=== PATIENT | female | born 1995 | race Caucasian/White ===

== ENCOUNTER → 2019-04-30 | Outpatient (CLI) | payer BC | END | disposition home or self-care (01) | LOC: LABWHC1 13:30 | PROVIDERS: ATTEND Obstetrics & Gynecology | DX: Z34.81 Encounter for supervision of other normal pregnancy, first trimester (principal) | CPT/HCPCS: 36415; 84702 ==

== ENCOUNTER 2020-05-30 06:00 | Inpatient (IN) | payer BC ==
[2020-05-30] MEDS ORDERED: LIDOCAINE 0.5% (PF) 5 MG/ML (50 ML SDV) SQ PRN (06:54)
[2020-05-30] MEDS ORDERED: TERBUTALINE 1 MG/ML VIAL SQ PRN (06:54)
[2020-05-30] MEDS ORDERED: CARBOPROST TROMETHAMINE 250 MCG/ML 1 ML AMP IM PRN (06:54)
[2020-05-30] MEDS ORDERED: OXYTOCIN 10 UNIT/ML 1 ML VIAL IM PRN (06:54)
[2020-05-30] MEDS ORDERED: METHYLERGONOVINE 0.2 MG/ML 1 ML AMP IM PRN (06:54)
[2020-05-30] MEDS ORDERED: LACTATED RINGERS 1,000 ML IV SCH (07:00)
[2020-05-30] MEDS ORDERED: OXYTOCIN 30 UNITS/500 ML NS 30 UNIT in SALINE 1 500ML.BAG IV SCH (07:00)
[2020-05-30] MEDS ORDERED: PENICILLIN G POTASSIUM 5,000,000 UNIT in DEXTROSE 5% IN WATER 100 ML IVPB STA ×2 (07:02)
[2020-05-30 07:47] LABS: Basophils % (A) 0 %; Eosinophils # (A) 0.1 k/uL (0-0.7); Eosinophils % (A) 1 %; HCT 37.9 % (34.0-46.0); HGB 12.6 gm/dL (11.4-16.0); Lymphocytes # (A) 1.4 k/uL (1.0-4.8); Lymphocytes % (A) 12 %; MCHC 33.3 g/dL (31.0-37.0); MCV 87.1 fL (80.0-100.0); Mean Platelet Volume 7.7; Monocytes # (A) 0.5 k/uL (0-1.0); Monocytes % (A) 4 %; Neutrophils # (A) 9.7 k/uL (1.3-7.7); Neutrophils % (A) 82 %; Platelet Count 217 k/uL (150-450); RBC 4.35 m/uL (3.80-5.40); RDW 14.1 % (11.5-15.5); WBC 11.8 k/uL (3.8-10.6)
[2020-05-30] MEDS ORDERED: BUTORPHANOL 1 MG/ML 1 ML VIAL IV PRN (09:01)
--- NOTE | 2020-05-30 09:06 | P.HPOB ---
History of Present Illness H&P Date: 05/30/20 Chief Complaint: 39+ weeks, elective induction The patient is a 24-year-old 3 para 1011 admitted at 39+ weeks as established by last menstrual period and confirmed by seven-week ultrasound. She is admitted for elective induction of labor with all signs reassuring. Her has been uncomplicated though she is known to be Rh- and received RhoGAM at 28 weeks. She was also found to be group B strep positive. Obstetrical history: 3 para 1011 with 1 term vaginal delivery without complications. She additionally had one early elective interruption of . Current statistics are listed in history of present illness. EDC of 06/03/2020 was established by last menstrual period and confirmed by seven-week ultrasound. Laboratory workup done traits of blood type of A- with a negative antibody screen. Rubella status is immune. The remainder of the laboratory workup was within normal limits. Early Glucola as well as second trimester Glucola were within normal limits and group B strep status is positive. Gynecologic history: Unremarkable with no history of any infections to include STDs. Review of Systems Review of systems is confined to history of present illness. Past Medical History Past Medical History: Asthma, GERD/Reflux Additional Past Medical History / Comment(s): HYPOGLYCEMIA. LOWER GI BLEEDING. ASTHMA INDUCED BY ALLERGIES/EXERCISE. History of Any Multi-Drug Resistant Organisms: None Reported Past Surgical History: No Surgical Hx Reported Past Anesthesia/Blood Transfusion Reactions: No Reported Reaction Additional Past Anesthesia/Blood Transfusion Reaction / Comment(s): HAS NEVER HAD ANESTHESIA Smoking Status: Current every day smoker Past Alcohol Use History: Occasional Past Drug Use History: None Reported Medications and Allergies Home Medications Medication Instructions Recorded Confirmed Type Albuterol Inhaler (Mhu) [Ventolin 2 puff INHALATION QID PRN 11/03/14 05/30/20 History Hfa Inhaler (Mhu)] Pnv,Calcium 72/Iron/Folic Acid 1 each PO DAILY 05/30/20 05/30/20 History [ Plus Tablet] Allergies Allergy/AdvReac Type Severity Reaction Status Date / Time acetaminophen [From Tylenol] Allergy Anaphylaxis Verified 05/30/20 06:54 Exam Intake and Output 05/29/20 05/30/20 05/30/20 22:59 06:59 14:59 Other: Weight 100.244 kg In general, this is a well-developed, well-nourished white female in no acute distress. Her heart has regular rhythm and rate without murmur. Her lungs are clear to auscultation bilaterally in all bower. Her abdomen is gravid, nondistended, has normal active bowel sounds, soft, nontender, and without any palpable masses aside from uterine fundus. Her extremities are without any cyanosis, clubbing, or edema and are nontender to palpation bilaterally. Digital cervical examination demonstrates her cervix to be 2+ centimeters dilated, 60% effaced, the vertex in presentation at -2 station. Artificial rupture of membranes is carried out demonstrating clear fluid. Results Result Diagrams: 05/30/20 07:15 Abnormal Lab Results - Last 24 Hours (Table) 05/30/20 Range/Units 07:15 WBC 11.8 H (3.8-10.6) k/uL Neutrophils # 9.7 H (1.3-7.7) k/uL Assessment and Plan (1) Term Current Visit: Yes Status: Acute Code(s): Z34.90 - ENCNTR FOR SUPRVSN OF NORMAL , UNSP, UNSP TRIMESTER SNOMED Code(s): 07660216 (2) Group B streptococcal infection in Current Visit: Yes Status: Acute Code(s): O98.819 - OTH MATERNAL INFEC/PARASTC DISEASES COMP PREG, UNSP TRI; B95.1 - STREPTOCOCCUS, GROUP B, CAUSING DISEASES CLASSD ELSWHR SNOMED Code(s): 076799176 Plan: The patient has been admitted for elective induction of labor. This is at her request. She does understand that there is a perhaps slightly increased risk for delivery under elective circumstances. On admission, all signs reassuring. She has had Pitocin augmentation started and has undergone artificial rupture of membranes. She will have close maternal and survei llance and expectant management will be practiced. She is a good candidate for either IV or epidural analgesia, whichever she may choose.
[2020-05-30] MEDS ORDERED: ROPIVACAINE 5MG/ML 20ML VIAL ONE (10:34)
[2020-05-30] MEDS ORDERED: SODIUM CHLORIDE 0.9% 100 ML BAG ONE (10:34)
[2020-05-30] MEDS ORDERED: fentaNYL (PF) 50 MCG/ML 5 ML AMP ONE (10:34)
[2020-05-30] MEDS ORDERED: PENICILLIN G POTASSIUM 2,500,000 UNIT in DEXTROSE 5% IN WATER 100 ML IVPB SCH ×2 (11:00)
[2020-05-30] MEDS ORDERED: ZOLPIDEM 5 MG TAB PO PRN (12:29)
[2020-05-30] MEDS ORDERED: diphenhydrAMINE 50 MG CAP PO PRN (12:29)
[2020-05-30] MEDS ORDERED: BENZOCAINE/MENTHOL SPRAY 1 GM/SPRAY AEROSOL TOPICAL PRN (12:29)
[2020-05-30] MEDS ORDERED: LANOLIN CREAM 5 GM TUBE TOPICAL PRN (12:29)
[2020-05-30] MEDS ORDERED: diphenhydrAMINE 25 MG CAP PO PRN (12:29)
[2020-05-30] MEDS ORDERED: WITCH HAZEL 1 EACH MED..PAD TOPICAL PRN (12:29)
[2020-05-30] MEDS ORDERED: diphenhydrAMINE 50 MG/ML 1 ML VIAL IVP PRN ×2 (12:29)
[2020-05-30] MEDS ORDERED: HYDROCORTISONE 2.5% RECTAL CREAM 30 GM TUBE RECTAL PRN (12:29)
[2020-05-30] MEDS ORDERED: SIMETHICONE 80 MG CHEWABLE PO PRN (12:29)
[2020-05-30] MEDS ORDERED: OXYTOCIN 20 UNITS/1000 ML NS 1,000 ML IV SCH (12:30)
[2020-05-30] MEDS ORDERED: KETOROLAC 30 MG/ML 1 ML VIAL IVP PRN (12:32)
--- NOTE | 2020-05-30 12:34 | P.PROBDLV ---
Vaginal Delivery Note - . Vaginal Delivery Note: The patient is a 24-year-old 3 para 1011 admitted at 39-3/7 weeks by good dating parameters. She is admitted for an elective induction of labor with all signs reassuring. Her has been uncomplicated though she is Rh- and received RhoGAM at 28 weeks. She was additionally found to be group B strep positive. As result, antibiotic prophylaxis was started along with Pitocin augmentation. She underwent artificial rupture of membranes demonstrating clear fluid. She made progress to approximate 4 cm is at which time an epidural catheter was placed for analgesia. She then progressed very quickly through the active phase of labor to complete and +3 station. She pushed over the course of 1 contraction to a normal spontaneous vaginal delivery of a viable 8 lbs. 2 oz. baby boy with Apgars of 9 at 1 minute and 10 at 5 minutes. The placenta was de livered spontaneously, intact, and grossly normal with a grossly normal, centrally inserted three-vessel cord. There were no lacerations of the perineum, vagina, or cervix. Estimated blood loss for the case is approximately 100 mL. There were no complications. All sponge, instrument, and needle counts were correct. Both mother and infant are resting comfortably in recovery.
[2020-05-30] MEDS ORDERED: Rhogam IMMUNE GLOBULIN 1,500 UNIT/1 ML IM ONE (18:02)
[2020-05-30] MEDS: IBUPROFEN 600 MG TAB PO PRN (21:05)
[2020-05-30] MEDS: SENNOSIDES-DOCUSATE SODIUM 1 EACH TAB PO SCH (22:17)
[2020-05-31] MEDS: SENNOSIDES-DOCUSATE SODIUM 1 EACH TAB PO SCH (07:43)
[2020-05-31] MEDS: IBUPROFEN 600 MG TAB PO PRN (07:44)
--- NOTE | 2020-05-31 07:57 | P.DS ---
Providers Date of admission: 05/30/20 06:36 Expected date of discharge: 05/31/20 Attending physician: Frank Oseguera Primary care physician: Stated None - Discharge Diagnosis(es) (1) Term Current Visit: Yes Status: Acute (2) Group B streptococcal infection in Current Visit: Yes Status: Acute (3) Normal spontaneous vaginal delivery Current Visit: Yes Status: Acute Hospital Course: The patient is a 24 year 3 para 1011 admitted at 39-3/7 weeks by good dating parameters. She is admitted for an elective induction with all signs reassuring. Her has been uncomplicated though she is Rh- and received RhoGAM at 28 weeks. She is also group B strep positive. As result, she had antibody prophylaxis started on labor and delivery as well as Pitocin augmentation. She underwent artificial rupture of membranes for clear fluid. She had an epidural catheter placed at the onset of the active phase of labor, approximate 4 cm, and then made rapid progress through the active phase of labor to complete at which time she pushed very quickly to a normal spontaneous vaginal delivery of a viable 8 lbs. 2 oz. baby boy with Apgars of 9 at 1 minute and 10 at 5 minutes. Her course has been unremarkable with vital signs remaining stable and her temperature was afebrile throughout. She is deemed stable for discharge on day #1 and was discharged home to follow-up in the office in 6 weeks' time routinely. Discharge instructions included calling for any significantly increased fever or abdominal pain, significantly increased lochia or foul-smelling lochia, perineal complaints, or anything else that concerned her. She is additionally instructed to have nothing in the vagina for at least 6 weeks time to include intercourse. She understood her instructions and agrees to follow up as noted above. Discharge medications included only continue vitamins as she has opted to breast- feed as well as [id number] analgesic pain medications. Maternal blood type is A- and cord blood was sent for the evaluation for the necessity of RhoGAM prior to discharge. Rubella status is immune. Procedures: #1. Antibody prophylaxis #2. Pitocin augmentation/induction #3. Artificial rupture of membranes #4. Epidural analgesia #5. Normal spontaneous vaginal delivery Patient Condition at Discharge: Good Plan - Discharge Summary New Discharge Prescriptions: No Action Albuterol Inhaler (Mhu) [Ventolin Hfa Inhaler (Mhu)] 2 puff INHALATION QID PRN PRN Reason: Shortness Of Breath Or Wheezing Pnv,Calcium 72/Iron/Folic Acid [ Plus Tablet] 1 each PO DAILY Discharge Medication List Albuterol Inhaler (Mhu) [Ventolin Hfa Inhaler (Mhu)] 2 puff INHALATION QID PRN 11/03/14 [History] Pnv,Calcium 72/Iron/Folic Acid [ Plus Tablet] 1 each PO DAILY 05/30/20 [History] Follow up Appointment(s)/Referral(s): Frank Oseguera MD [STAFF PHYSICIAN] - 6 Weeks Discharge Disposition: HOME SELF-CARE
[2020-05-31 07:59] VITALS: BP 126/80; PULSE 72; RESP 16; TEMP 97.7
== END 2020-05-31 14:30 | disposition home or self-care (01) | DRG 807 ==
LOC: 4FBP 06:36
PROVIDERS: ADMIT Obstetrics & Gynecology; ATTEND Obstetrics & Gynecology
PROC: 10E0XZZ Delivery of Products of Conception, External Approach (ICD-10-PCS; principal; 2020-05-30)
PROC: 3E033VJ Introduction of Other Hormone into Peripheral Vein, Percutaneous Approach (ICD-10-PCS; principal; 2020-05-30)
PROC: 3E0R3BZ Introduction of Anesthetic Agent into Spinal Canal, Percutaneous Approach (ICD-10-PCS; principal; 2020-05-30)
PROC: 10907ZC Drainage of Amniotic Fluid, Therapeutic from Products of Conception, Via Natural or Artificial Opening (ICD-10-PCS; principal; 2020-05-30)
PROC: 00HU33Z Insertion of Infusion Device into Spinal Canal, Percutaneous Approach (ICD-10-PCS; principal; 2020-05-30)
PROC: 3E0234Z Introduction of Serum, Toxoid and Vaccine into Muscle, Percutaneous Approach (ICD-10-PCS; 2020-05-30)
DX: O99.824 Streptococcus B carrier state complicating childbirth (principal); Z37.0 Single live birth; B95.1 Streptococcus, group B, as the cause of diseases classified elsewhere; O99.52 Diseases of the respiratory system complicating childbirth; J45.909 Unspecified asthma, uncomplicated; O99.334 Smoking (tobacco) complicating childbirth; F17.200 Nicotine dependence, unspecified, uncomplicated; O99.62 Diseases of the digestive system complicating childbirth; K21.9 Gastro-esophageal reflux disease without esophagitis; O26.893 Other specified pregnancy related conditions, third trimester; Z67.11 Type A blood, Rh negative; Z3A.39 39 weeks gestation of pregnancy; Z88.6 Allergy status to analgesic agent
CPT/HCPCS: 85025; 85461; 86850; 86900; 86901

== ENCOUNTER → 2022-06-27 | Outpatient (CLI) | payer OTHER ==
--- NOTE | 2022-06-27 16:15 | US ---
EXAMINATION TYPE: US thyroid st tissue head/neck DATE OF EXAM: 06/27/2022 COMPARISON: NONE CLINICAL HISTORY: R22.1 NECK MASS. Lt Neck Mass GLAND SIZE: Right Lobe: 5.6 x 2.0 x 1.6 cm Overall Parenchyma: homogenous Left Lobe: 5.7 x 2.7 x 2.7 cm Overall Parenchyma: heterogeneous Isthmus Thickness: 0.2 cm NODULES RIGHT: # of nodules measured on right: 0 LEFT: # of nodules measured on left: 1 1. 3.0 X 2.1 x 2.5 cm, mid , mixed cystic and solid, hypoechoic nodule, which is wider than tall, w ith lobulated or irregular margins, with echogenic foci. ISTHMUS: # of nodules measured in the isthmus: 0 Bilateral neck scanned, no evidence of lymphadenopathy. IMPRESSION: 1. Highly Suspicious nodule left lobe thyroid. Fine-needle aspiration recommended. 2017 ACR TI-RADS LEVEL: TI-RADS 5 - Highly Suspicious: Follow if > 0.5 cm, FNA if > 1.0 cm *Highest TI-RADS level nodule reported
== END | disposition home or self-care (01) ==
LOC: RADUSWWP 08:22
PROVIDERS: ATTEND Family Medicine
DX: R22.1 Localized swelling, mass and lump, neck (principal)
CPT/HCPCS: 76536

== ENCOUNTER → 2022-09-13 | Outpatient (CLI) | payer OTHER ==
[2022-09-14 05:04] LABS: African American GFR (CKD) 125.2 (60.0-200.0); Albumin 4.5 g/dL (3.8-4.9); Albumin/Globulin Ratio 1.72 (1.60-3.17); BUN/Creat Ratio 14.97 Ratio (12.00-20.00); Blood Urea Nitrogen 11.2 mg/dL (9.0-27.0); Carbon Dioxide 24.9 mmol/L (20.0-27.5); Globulin 2.6 g/dL (1.6-3.3); Non-African American GFR(CKD) 108.1 (60.0-200.0); Potassium 4.3 mmol/L (3.5-5.5); Total Bilirubin 0.3 mg/dL (0.30-1.20)
== END | disposition home or self-care (01) ==
LOC: LABWHC1 15:07
PROVIDERS: ATTEND Internal Medicine Endocrinology, Diabetes & Metabolism
DX: C73 Malignant neoplasm of thyroid gland (principal); E89.2 Postprocedural hypoparathyroidism
CPT/HCPCS: 36415; 80053; 83970; 84432; 84443; 86800

== ENCOUNTER → 2022-10-23 | Outpatient (CLI) | payer OTHER ==
[2022-10-24 00:11] LABS: African American GFR (CKD) 135.7 (60.0-200.0); Albumin 4.4 g/dL (3.8-4.9); Albumin/Globulin Ratio 1.76 (1.60-3.17); Anion Gap 12.4 mmol/L (10.00-18.00); BUN/Creat Ratio 16.14 Ratio (12.00-20.00); Blood Urea Nitrogen 11.3 mg/dL (9.0-27.0); Calcium 9.4 mg/dL (8.7-10.3); Carbon Dioxide 29.6 mmol/L (20.0-27.5); Globulin 2.5 g/dL (1.6-3.3); Non-African American GFR(CKD) 117.1 (60.0-200.0); Potassium 4.1 mmol/L (3.5-5.5); Total Bilirubin 0.3 mg/dL (0.30-1.20); Total Protein 6.9 g/dL (6.2-8.2)
== END | disposition home or self-care (01) ==
LOC: LABWHC1 14:55
PROVIDERS: ATTEND Internal Medicine Endocrinology, Diabetes & Metabolism
DX: E03.8 Other specified hypothyroidism (principal)
CPT/HCPCS: 36415; 80053; 83970; 84443

== ENCOUNTER → 2022-12-08 | Outpatient (CLI) | payer OTHER ==
[2022-12-08 16:56] LABS: African American GFR (CKD) 115.5 (60.0-200.0); Albumin 4.4 g/dL (3.8-4.9); Albumin/Globulin Ratio 1.76 (1.60-3.17); Anion Gap 10.5 mmol/L (10.00-18.00); BUN/Creat Ratio 12.88 Ratio (12.00-20.00); Blood Urea Nitrogen 10.3 mg/dL (9.0-27.0); Carbon Dioxide 25.5 mmol/L (20.0-27.5); Globulin 2.5 g/dL (1.6-3.3); Non-African American GFR(CKD) 99.6 (60.0-200.0); Potassium 4.3 mmol/L (3.5-5.5); Total Bilirubin 0.4 mg/dL (0.30-1.20); Total Protein 6.9 g/dL (6.2-8.2)
== END | disposition home or self-care (01) ==
LOC: LABWHC1 10:08
PROVIDERS: ATTEND Internal Medicine Endocrinology, Diabetes & Metabolism
DX: C73 Malignant neoplasm of thyroid gland (principal); E89.0 Postprocedural hypothyroidism; E89.2 Postprocedural hypoparathyroidism
CPT/HCPCS: 36415; 80053; 83970; 84432; 84443; 86800

== ENCOUNTER → 2023-07-05 | Outpatient (CLI) | payer OTHER ==
[2023-07-05 19:04] LABS: ALT 30 U/L (8-44); AST 27 U/L (13-35); Albumin 4.3 d/dL (3.8-4.9); Albumin/Globulin Ratio 1.72 Ratio (1.60-3.17); Alkaline Phosphatase 110 U/L (41-126); BUN/Creat Ratio 13.25 Ratio (12.00-20.00); Blood Urea Nitrogen 10.6 mg/dL (9.0-27.0); Calcium 8.9 mg/dL (8.7-10.3); Carbon Dioxide 23.5 mmol/L (21.6-31.8); Chloride 102 mmol/L (96-109); Globulin 2.5 d/dL (1.6-3.3); Glucose 75 mg/dL (70-110); Potassium 4.6 mmol/L (3.5-5.5); Sodium 139 mmol/L (135-145); Total Bilirubin 0.3 mg/dL (0.3-1.2); Total Protein 6.8 d/dL (6.2-8.2)
== END | disposition home or self-care (01) ==
LOC: LABWHC1 09:22
PROVIDERS: ATTEND Internal Medicine Endocrinology, Diabetes & Metabolism
DX: C73 Malignant neoplasm of thyroid gland (principal); E89.2 Postprocedural hypoparathyroidism
CPT/HCPCS: 36415; 80053; 82306; 83970; 84432; 84443; 86800

== ENCOUNTER → 2023-07-31 | Outpatient (CLI) | payer OTHER ==
--- NOTE | 2023-07-31 16:22 | US ---
EXAMINATION TYPE: US thyroid st tissue head/neck DATE OF EXAM: 07/31/2023 COMPARISON: 06/27/22 CLINICAL INDICATION: Female, 28 years old with history of C73 MALIGNANT NEOPLASM OF THYROID GLAND; Hx of malignant neoplasm in thyroid. Thyroidectomy July 2022. GLAND SIZE: Right Lobe: Surgically absent Left Lobe: Surgically absent There is some questionable residual thyroid tissue within the left thyroidectomy bed measuring up to 0.7 cm. Bilateral neck scanned, no evidence of lymphadenopathy. IMPRESSION: Post surgical changes from total thyroidectomy. Questionable residual thyroid tissue within the left thyroidectomy bed. Attention on follow-up exam.
== END | disposition home or self-care (01) ==
LOC: RADUSWWP 15:47
PROVIDERS: ATTEND Internal Medicine Endocrinology, Diabetes & Metabolism
DX: C73 Malignant neoplasm of thyroid gland (principal); E89.0 Postprocedural hypothyroidism
CPT/HCPCS: 76536

== ENCOUNTER → 2023-12-12 | Outpatient (CLI) | payer OTHER | END | disposition home or self-care (01) | LOC: LABWHC1 08:51 | PROVIDERS: ATTEND Internal Medicine Endocrinology, Diabetes & Metabolism | DX: C73 Malignant neoplasm of thyroid gland (principal) | CPT/HCPCS: 36415; 84432; 86800 ==

== ENCOUNTER → 2023-12-16 | Outpatient (CLI) | payer OTHER ==
[2023-12-16 20:37] LABS: T4, Free (Free Thyroxine) 1.76 ng/dL (0.80-1.80)
== END | disposition home or self-care (01) ==
LOC: LABWHC1 14:25
PROVIDERS: ATTEND Internal Medicine Endocrinology, Diabetes & Metabolism
DX: C73 Malignant neoplasm of thyroid gland (principal)
CPT/HCPCS: 36415; 84439; 84443

== ENCOUNTER → 2024-03-12 | Outpatient (CLI) | payer OTHER ==
[2024-03-12 19:11] LABS: T4, Free (Free Thyroxine) 2.01 ng/dL (0.80-1.80)
== END | disposition home or self-care (01) ==
LOC: LABWHC1 14:17
PROVIDERS: ATTEND Internal Medicine Endocrinology, Diabetes & Metabolism
DX: C73 Malignant neoplasm of thyroid gland (principal)
CPT/HCPCS: 36415; 84439; 84443

== ENCOUNTER → 2024-06-24 | Outpatient (CLI) | payer OTHER | END | disposition home or self-care (01) | LOC: LABWHC1 14:37 | PROVIDERS: ATTEND Internal Medicine Endocrinology, Diabetes & Metabolism | DX: C73 Malignant neoplasm of thyroid gland (principal) | CPT/HCPCS: 36415; 84432; 84443; 86800 ==

== ENCOUNTER → 2024-07-17 | Outpatient (CLI) | payer OTHER ==
--- NOTE | 2024-08-18 18:00 | US ---
Site ID [facility] Ann Pineda ID [id number] 1995 Age/Gender: 29Y, N/A Order # N/A Procedure US thyroid st tissue head/neck Date 07/17/2024 10:13:00 AM EXAMINATION TYPE: US thyroid st tissue head/neck DATE OF EXAM: 07/27/2024 COMPARISON: None, please note PACS Production downtime occurred during the radiologist interpretation of these images with limited priors/reports. CLINICAL INDICATION: 29 year old with history of thyroid cancer status post complete thyroidectomy. FINDINGS: Postsurgical changes from total thyroidectomy. Right thyroidectomy bed appears unremarkable. There is a solid hypoechoic vascular lesion within the left thyroidectomy bed measuring 0.9 x 0.4 x 0.5 cm. T his is ovoid and well-circumscribed. Bilateral neck scanned, no evidence of lymphadenopathy. IMPRESSION: Post surgical changes from total thyroidectomy with 0.9 cm hypervascular lesion within the left thyro idectomy bed concerning for recurrence.
== END | disposition home or self-care (01) ==
LOC: RADUSWWP 10:42
PROVIDERS: ATTEND Internal Medicine Endocrinology, Diabetes & Metabolism
DX: C73 Malignant neoplasm of thyroid gland (principal); Z85.850 Personal history of malignant neoplasm of thyroid
CPT/HCPCS: 76536

== ENCOUNTER → 2024-11-27 | Outpatient (CLI) | payer OTHER ==
[2024-11-27 16:53] LABS: ALT 38 U/L (8-44); AST 25 U/L (13-35); Albumin 4.3 g/dL (3.8-4.9); Albumin/Globulin Ratio 1.72 Ratio (1.60-3.17); Alkaline Phosphatase 105 U/L (41-126); BUN/Creat Ratio 18.33 Ratio (12.00-20.00); Calcium 8.8 mg/dL (8.7-10.3); Carbon Dioxide 27.5 mmol/L (21.6-31.8); Chloride 102 mmol/L (96-109); Globulin 2.5 g/dL (1.6-3.3); Glucose 72 mg/dL (70-110); Potassium 4.2 mmol/L (3.5-5.5); Sodium 139 mmol/L (135-145); Total Bilirubin 0.3 mg/dL (0.3-1.2); Total Protein 6.8 g/dL (6.2-8.2)
== END | disposition home or self-care (01) ==
LOC: LABWHC1 12:19
PROVIDERS: ATTEND Internal Medicine Endocrinology, Diabetes & Metabolism
DX: C73 Malignant neoplasm of thyroid gland (principal)
CPT/HCPCS: 36415; 80053; 82306; 83970; 84432; 84443; 86800

== ENCOUNTER → 2025-03-26 | Outpatient (CLI) | payer OTHER | END | disposition home or self-care (01) | LOC: LABWHC1 12:58 | PROVIDERS: ATTEND Internal Medicine Endocrinology, Diabetes & Metabolism | DX: C73 Malignant neoplasm of thyroid gland (principal) | CPT/HCPCS: 36415; 84432; 84443; 86800 ==

== ENCOUNTER → 2025-06-28 | Outpatient (CLI) | payer OTHER | END | disposition home or self-care (01) | LOC: LABWHC1 11:48 | PROVIDERS: ATTEND Internal Medicine Endocrinology, Diabetes & Metabolism | DX: C73 Malignant neoplasm of thyroid gland (principal) | CPT/HCPCS: 36415; 84432; 84443; 86800 ==